=== PATIENT | male | born 1960 | race Native Hawaiian/Other Pacific Islander ===

== ENCOUNTER 2025-06-24 10:49 | Outpatient (CLI) | payer OTHER | END 2025-06-24 10:50 | disposition home or self-care (01) | LOC: MRI 10:49 | PROVIDERS: ATTEND Internal Medicine | DX: M46.1 Sacroiliitis, not elsewhere classified (principal); M51.369 Other intervertebral disc degeneration, lumbar region without mention of lumbar back pain or lower extremity pain; M16.0 Bilateral primary osteoarthritis of hip | CPT/HCPCS: 72195 ==